=== PATIENT | female | born 1945 | race Caucasian/White ===

== ENCOUNTER 2019-01-14 15:45 | Emergency (ER) | payer MEDICARE, OTHER ==
[2019-01-14] MEDS ORDERED: Sodium Chloride 0.9% 10 ML Syringe FLUSH PRN (16:12)
--- NOTE | 2019-01-14 18:06 | EDM.PDOC ---
ED HPI GENERAL MEDICAL PROBLEM - General Chief Complaint: Chest Pain Stated Complaint: [facility] Time Seen by Provider: 01/14/19 15:56 Source of Information: Reports: Patient, EMS History Limitations: Reports: No Limitations - History of Present Illness INITIAL COMMENTS - FREE TEXT/NARRATIVE: The patient presents by [facility] for chest pain. She says she sat down to eat this afternoon in a crowded [employer] and did not feel well. She then developed chest pain. She says it is a pressure and tight band around her chest. She has some shortness of breath with it. She has no fever, chills or cough. She has some abdominal pain but no nausea or vomiting. She has a significant cardiac history. When she was 40, she had 2 episodes of cardiac arrest and was revived. 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 She has been having some chest pain for a few months. According to old records, she had a coronary angiogram in August of 2017 that showed stable disease. [place] recently went [place] and saw [place] Macias a epic ambulatory analyst there. He ran some more test and she is waiting for the results. She took aspirin and 2 of her nitro. EMS gave her more nitro and fentanyl. The pain is better but not gone. Onset: Gradual Duration: Hour(s): Location: Reports: Chest Quality: Reports: Pressure (and tight band around chest) Severity: Moderate Improves with: Reports: None Worsens with: Reports: None Associated Symptoms: Reports: Chest Pain, Shortness of Breath. Denies: Cough, Fever/Chills, Headaches, Nausea/Vomiting Chest Pain Score (Numeric/FACES): 7 - Related Data Allergies Allergy/AdvReac Type Severity Reaction Status Date / Time attapulgite Allergy Other Verified 01/14/19 16:12 dimethicone Allergy Anaphylactic Verified 01/14/19 16:12 Shock diphenhydramine Allergy Other Verified 01/14/19 16:12 erythromycin base Allergy Other Verified 01/14/19 16:12 esomeprazole [From Nexium] Allergy Diarrhea Verified 01/14/19 16:12 lidocaine Allergy Other Verified 01/14/19 16:12 methenamine Allergy Abdominal Verified 01/14/19 16:26 Pain nitrofurantoin Allergy Other Verified 01/14/19 16:12 [From Macrobid] Penicillins Allergy Rash Verified 01/14/19 16:12 pseudoephedrine Allergy Other Verified 01/14/19 16:12 Quinolones Allergy Other Verified 01/14/19 16:26 simethicone Allergy Respiratory Verified 01/14/19 16:26 Distress adhesive tapes Allergy Redness Uncoded 01/14/19 16:26 maalo Allergy Respiratory Uncoded 01/14/19 16:12 Distress Home Meds: Home Meds Aspirin [[place] Aspirin] 81 mg PO DAILY 01/14/19 [History] Atenolol [Tenormin] 50 mg PO ASDIRECTED 01/14/19 [History] Colchicine 0.3 mg PO ASDIRECTED PRN 01/14/19 [History] Doxycycline [Doxycycline Hyclate] 100 mg PO ASDIRECTED 01/14/19 [History] Fenofibrate Nanocrystallized [Fenofibrate] 48 mg PO DAILY 01/14/19 [History] LORazepam [Ativan] 1 mg PO ASDIRECTED 01/14/19 [History] Levothyroxine [Synthroid] 100 mcg PO ACBREAKFAST 01/14/19 [History] Losartan/Hydrochlorothiazide [Losartan-HCTZ 50-12.5 MG] 1 tab PO DAILY 01/14/19 [History] Nitroglycerin 0.4 mg SL ASDIRECTED PRN 01/14/19 [History] Pantoprazole Sodium 40 mg PO BID 01/14/19 [History] Pravastatin Sodium [Pravastatin (Pravachol)] 40 mg PO DAILY 01/14/19 [History] amLODIPine [Norvasc] 2.5 mg PO DAILY 01/14/19 [History] Past Medical History Cardiovascular History: Reports: Hypertension, Prior Cardiac Arrest Other Cardiovascular History: Long QT, strong family hx of cardiac problems Other Endocrine/Metabolic History: jovanny Social & Family History - Family History Cardiac: Reports: Prior Cardiac Arrest - Tobacco Use Smoking Status *Q: Never Smoker ED ROS GENERAL - Review of Systems Review Of Systems: See Below Constitutional: Reports: No Symptoms HEENT: Reports: No Symptoms Respiratory: Reports: Shortness of Breath Cardiovascular: Reports: Chest Pain Endocrine: Reports: No Symptoms GI/Abdominal: Reports: No Symptoms : Reports: No Symptoms Musculoskeletal: Reports: No Symptoms ED EXAM, GENERAL - Physical Exam Exam: See Below Exam Limited By: No Limitations General Appearance: Alert, No Apparent Distress Ears: Normal External Exam Nose: Normal Inspection Head: Atraumatic, Normocephalic Neck: Normal Inspection Respiratory/Chest: No Respiratory Distress, Lungs Clear, Normal Breath Sounds Cardiovascular: Regular Rate, Rhythm, No Edema, No Murmur GI/Abdominal: Soft, Non-Tender, No Organomegaly, No Mass Back Exam: Normal Inspection Extremities: Normal Inspection EKG INTERPRETATION EKG Date: 01/14/19 Time: 15:51 Rhythm: NSR Rate (Beats/Min): 73 [place]: LAD-Left [place] Deviation P-Wave: Present QRS: LBBB ST-T: Normal QT: Normal Course - Vital Signs Last Recorded V/S: Last Vital Signs Temp 97.6 F 01/14/19 15:53 Pulse 74 01/14/19 15:53 Resp 16 01/14/19 15:53 BP 134/74 01/14/19 15:53 Pulse Ox 91 L 01/14/19 15:53 - Orders/Labs/Meds Orders: Active Orders 24 hr Category Date Time Status Cardiac Monitoring [RC] . DIRECTED Care 01/14/19 16:12 Active EKG Documentation Completion [RC] STAT Care 01/14/19 16:13 Active Peripheral IV Care [RC] . DIRECTED Care 01/14/19 16:13 Active Chest 1V Frontal [CR] Stat Exams 01/14/19 16:13 Taken Heparin Sodium/D5W [Heparin 25,000 Units in D5W 500 ML] Med 01/14/19 18:45 Ordered 25,000 units in 500 ml IV TITRATE Sodium Chloride 0.9% [Saline Flush] Med 01/14/19 16:12 Active 10 ml FLUSH ASDIRECTED PRN Peripheral IV Insertion Adult [OM.PC] Stat Oth 01/14/19 16:12 Ordered Medication Orders Sodium Chloride (Saline Flush) 10 ml FLUSH ASDIRECTED PRN PRN Reason: Keep Vein Open Labs: Laboratory Tests 01/14/19 01/14/19 Range/Units 16:00 16:00 WBC 9.04 (3.98-10.04) K/mm3 RBC 4.04 (3.98-5.22) M/mm3 Hgb 11.5 (11.2-15.7) gm/L Hct 35.9 (34.1-44.9) % MCV 88.9 (79.4-94.8) fl MCH 28.5 (25.6-32.2) pg MCHC 32.0 L (32.2-35.5) g/dl RDW Std Deviation 48.9 H (36.4-46.3) fL Plt Count 398 H (182-369) K/mm3 MPV 9.7 (9.4-12.3) fl Neut % (Auto) 67.4 (34.0-71.1) % Lymph % (Auto) 22.5 (19.3-51.7) % [place] % (Auto) 6.1 (4.7-12.5) % Eos % (Auto) 3.1 (0.7-5.8) Baso % (Auto) 0.6 (0.1-1.2) % Neut # (Auto) 6.10 (1.56-6.13) K/mm3 Lymph # (Auto) 2.03 (1.18-3.74) K/mm3 [place] # (Auto) 0.55 H (0.24-0.36) K/mm3 Eos # (Auto) 0.28 (0.04-0.36) K/mm3 Baso # (Auto) 0.05 (0.01-0.08) K/mm3 Sodium 136 (136-145) mEq/L Potassium 3.8 (3.5-5.1) mEq/L Chloride 103 (98-107) mEq/L Carbon Dioxide 24 (21-32) mEq/L Anion Gap 12.8 (5-15) BUN 18 (7-18) mg/dL Creatinine 1.2 H (0.55-1.02) mg/dL Est Cr Clr Drug Dosing 37.57 mL/min Estimated GFR (MDRD) 44 (>60) mL/min BUN/Creatinine Ratio 15.0 (14-18) Glucose 178 H (83-115) mg/dL Calcium 9.6 (8.5-10.1) mg/dL Total Bilirubin 0.3 (0.2-1.0) mg/dL AST 33 (15-37) U/L ALT 43 (14-59) U/L Alkaline Phosphatase 69 (46-116) U/L Troponin I < 0.017 (0.00-0.056) ng/mL Total Protein 7.5 (6.4-8.2) g/dl Albumin 3.8 (3.4-5.0) g/dl Globulin 3.7 gm/dL Albumin/Globulin Ratio 1.0 (1-2) Meds: Medications Generic Name Dose Route Start Last Admin Trade Name Alphonso PRN Reason Stop Dose Admin Sodium Chloride 10 ml 01/14/19 16:12 Saline Flush FLUSH ASDIRECTED PRN Keep Vein Open - Re-Assessments/Exams Free Text/Narrative Re-Assessment/Exam: 01/14/19 18:09 I ordered an IV saline lock, EKG, CXR and labs. Her EKG shows a NSR and LBBB. I got old records and she has had LBBB before. Her CXR looks good. Her CBC looks good. Her creatinine is elevated at 1.2. Her glucose is elevated at 178. Her troponin is negative. 01/14/19 18:39 The pain is mostly gone. She has a bad heart history. I feel this is unstable angina and she may need cardiology. I called [facility] in [place] and talked with Dr Wright the hospitalist and Dr Perry the epic ambulatory analyst and they wanted the patient here and wanted a heparin drip started. I have ordered that. She is going by ambulance. Departure - Departure Time of Disposition: 18:45 Disposition: DC/Tfer to Acute Hospital 02 Reason for Transfer *Q: Other Condition: Fair Clinical Impression: Unstable angina Referrals: Frannie Simon MD [Primary Care Provider] - Forms: ED Department Discharge - My Orders Last 24 Hours: My Active Orders 01/14/19 16:12 Cardiac Monitoring [RC] . DIRECTED Sodium Chloride 0.9% [Saline Flush] 10 ml FLUSH ASDIRECTED PRN Peripheral IV Insertion Adult [OM.PC] Stat 01/14/19 16:13 EKG Documentation Completion [RC] STAT Peripheral IV Care [RC] . DIRECTED Chest 1V Frontal [CR] Stat 01/14/19 18:45 Heparin Sodium/D5W [Heparin 25,000 Units in D5W 500 ML] 25,000 units in 500 ml IV TITRATE - Assessment/Plan Last 24 Hours: My Active Orders 01/14/19 16:12 Cardiac Monitoring [RC] . DIRECTED Sodium Chloride 0.9% [Saline Flush] 10 ml FLUSH ASDIRECTED PRN Peripheral IV Insertion Adult [OM.PC] Stat 01/14/19 16:13 EKG Documentation Completion [RC] STAT Peripheral IV Care [RC] . DIRECTED Chest 1V Frontal [CR] Stat 01/14/19 18:45 Heparin Sodium/D5W [Heparin 25,000 Units in D5W 500 ML] 25,000 units in 500 ml IV TITRATE
[2019-01-14] MEDS ORDERED: Heparin Sodium/D5W 25,000 UNITS/500 ML BAG IV SCH (18:45)
--- NOTE | 2019-01-16 10:29 | CR ---
Chest: Portable view of the chest was obtained. Comparison: No prior chest x-ray. Heart size and mediastinum are within normal limits for portable technique. Lungs are clear with no acute parenchymal change. Bony structures are grossly intact. Impression: 1. Nothing acute is seen on portable chest x-ray. Diagnostic code #1
== END 2019-01-14 19:40 ==
LOC: JD.ED 15:45
DX: I20.0 Unstable angina (principal); I10 Essential (primary) hypertension; Z88.8 Allergy status to other drugs, medicaments and biological substances; Z88.1 Allergy status to other antibiotic agents; Z88.6 Allergy status to analgesic agent; Z88.0 Allergy status to penicillin; Z91.048 Other nonmedicinal substance allergy status; Z79.82 Long term (current) use of aspirin; Z79.899 Other long term (current) drug therapy
CPT/HCPCS: 36415; 71045; 80053; 84484; 85025; 93005; 96365; 99285; J1644; 93010; 99284